=== PATIENT | female | born 1950 | race Two or more races ===

== ENCOUNTER 2018-12-20 07:07 | Outpatient (CLI) | payer OTHER | END 2018-12-20 07:44 | disposition home or self-care (01) | LOC: RAD 07:07 → RX STUDY 08:15 | DX: R10.13 Epigastric pain (principal) ==

== ENCOUNTER 2022-01-22 07:11 | Outpatient (CLI) | payer OTHER | END 2022-01-22 07:13 | disposition home or self-care (01) | LOC: TOM 07:11 | PROVIDERS: ATTEND Internal Medicine Gastroenterology | DX: R19.5 Other fecal abnormalities (principal); Z79.01 Long term (current) use of anticoagulants ==

== ENCOUNTER 2022-03-28 07:22 | Outpatient (CLI) | payer OTHER | END 2022-03-28 07:28 | disposition home or self-care (01) | LOC: RX STUDY 07:22 | PROVIDERS: ATTEND Internal Medicine | DX: N21.0 Calculus in bladder (principal); K44.9 Diaphragmatic hernia without obstruction or gangrene ==